=== PATIENT | male | born 1985 | race Caucasian/White ===

== ENCOUNTER 2023-03-01 12:53 | Outpatient (AMB) | payer OTHER, SELFPAY ==
--- NOTE | 2023-03-01 13:20 | HO.SPINEOV ---
Intake Intake Visit Reasons: Low back pain Intake Note: Mr. Chowdary is here today c/o low back pain. MRI done @ [facility]/brought disc. Head Machine Feeder Required: No Assessment & Plan Assessment & Plan (1) Lumbar radiculopathy: Code(s): M54.16 - Radiculopathy, lumbar region Plan Dear colleague, Thank you for referring Lico to our office today. He is a pleasant 38-year-old male who comes in with a chief complaint of right-sided leg weakness and pain. He reports burning and tingling originating in his right buttock and radiating down the posterio-lateral aspect of his right leg. He states that the inciting incident happened back in September when he was at the gym doing a lift. He states as he was pulling the weight off of the ground he felt a pop in his lower back. He does report that he was able to resume normal activities with minimal pain for the next couple of months, until he began feeling radicular symptoms on his right side in late December. He states he tried utilizing Tylenol and ibuprofen with minimal benefit, and was most recently (3 weeks ago) started on prednisone 40 mg daily, and oxycodone 15 mg QID for his persistent radicular pain and weakness. He reports that sitting aggravates his pain, and that standing and lying flat alleviate his pain. PMH: Gout. Appendectomy (1996), R hand ORIF (2009). Social hx: Patient does not smoke. Reports no recreational substance use. Medications: Prednisone 50mg daily. Oxycodone 15mg daily. Allergies: NKDA Physical exam: The patient is able to elicit 5/5 strength in his lower extremities, despite pain. He walks with an antalgic gait. Sensation is grossly intact. Lower extremity reflexes 2+ intact. (+) Straight leg raise on R side. (-) Babinski. Imaging review: At L5-S1 there is a large right-sided disc protrusion severely compressing the right S1 nerve root. Imaging reviewed with Dr. Gregg. Impression: The patient is a 38-year-old male coming in with a chief complaint of right-sided leg weakness and pain ongoing for the last 6-8 weeks post an initial inciting injury back in September. He has tried utilizing hoqa-xpl-uecbkbz pain medications, stretching, exercise, and resting without much benefit. He now finds himself on narcotic pain medications and steroids to help tolerate the pain. After reviewing his imaging and history with Dr. Gregg, we were able to offer him a L5-S1 microdiscectomy. He is agreeable to this plan, and was scheduled for March 17. Will need to call his prescriber and taper down off Prednisone dose over next 1-2 weeks. He was also advised to taper down off his pain medication regimen. Thank you for allowing us to care for your patient. The total time spent with this visit with this patient was 45 minutes reviewing history, physical exam, MRI imaging review, and implementation of treatment plan or further diagnostic testing. Aneesh Gregg MD,PhD [facility] Coding Level of Care Code New Pt Level 4 (94768) Diagnoses Lumbar radiculopathy M54.16 Time Spent (min) 45
== END 2023-03-01 13:51 | disposition home or self-care (01) ==
PROVIDERS: PCP Internal Medicine; Referring Provider Internal Medicine; Visit Provider Physician Assistant
DX: M54.16 Radiculopathy, lumbar region (principal)
CPT/HCPCS: 99204

== ENCOUNTER → 2023-03-01 12:53 | Outpatient (BNVA) | payer OTHER, SELFPAY | PROVIDERS: PCP Internal Medicine; Referring Provider Internal Medicine; Visit Provider Physician Assistant ==

== ENCOUNTER 2023-03-17 11:58 | Day surgery (SDC) | payer OTHER, SELFPAY ==
[2023-03-09 15:02] VITALS: BMI 28.1
--- NOTE | 2023-03-16 09:26 | HO.ANESPROP2 ---
Documented by User: Linda Mock NP 03/16/23 09:27 HPI - Anesthesia Eval Consult details Narrative: 38yo M for Right L5-S1 MLDMicrolumbar discectomy PMFSH Active Problems Active Problems: All Active Problems (Updated 03/09/23 @ 15:01 by Cat Cruz RN) Lumbar radiculopathy (Acute) Past Medical History Medical History (Updated 03/09/23 @ 15:01 by Cat Cruz RN) Gout Hx of concussion Low back pain Right hip pain Tingling Surgical History Surgical History (Updated 03/09/23 @ 14:59 by Cat Cruz RN) Hx of appendectomy Hx of hand surgery Social History Social History (Updated 03/09/23 @ 15:05 by Cat Cruz RN) Household Members: Family Housing: House Are you a primary pet care attendant to a significant other at home: Yes (lives with and children) Do you presently have visiting nurse or other home services: No Patient Tobacco Use Status: Never used Tobacco Use of substances other than those prescribed or required for medical reasons: No Have you been hit, kicked, punched, or otherwise hurt by someone within the past year? If so, by whom?: No Are you DNR?: No Advance Directives: No Advance Directives Information Provided: Yes Advance Directives on File: No Recently lost weight without trying: No Nutrition Risks: No Nutritional Risk Meds Allergies Allergy/AdvReac Type Severity Reaction Status Date / Time No Known Allergies Allergy Verified 03/07/23 15:58 Home Medications Medication Instructions Recorded Confirmed Last Taken Type oxycodone 10 mg tablet 10 mg PO QID PRN Pain 03/09/23 03/09/23 Unknown History Exam Exam Date and Time: March 16, 2023 0926 Height,Weight and Vital Signs: Height 5 ft 9 in Weight 86.183 kg Assessment and Plan Assessment Anesthesia Assessment: Chart Reviewed Documented by User: Yash Chase MD 03/17/23 11:26 [facility] Past Medical History Medical History (Updated 03/09/23 @ 15:01 by Cat Cruz, RN) Gout Hx of concussion Low back pain Right hip pain Tingling Family History Family history of problems with anesthesia: No Surgical History Surgical History (Updated 03/09/23 @ 14:59 by Cat Cruz, RN) Hx of appendectomy Hx of hand surgery History of Problems with Anesthesia: No Social History Social History (Updated 03/09/23 @ 15:05 by Cat Cruz, RN) Household Members: Family Housing: House Are you a primary pet care attendant to a significant other at home: Yes (lives with and children) Do you presently have visiting nurse or other home services: No Patient Tobacco Use Status: Never used Tobacco Use of substances other than those prescribed or required for medical reasons: No Have you been hit, kicked, punched, or otherwise hurt by someone within the past year? If so, by whom?: No Are you DNR?: No Advance Directives: No Advance Directives Information Provided: Yes Advance Directives on File: No Recently lost weight without trying: No Nutrition Risks: No Nutritional Risk Meds Allergies Allergy/AdvReac Type Severity Reaction Status Date / Time No Known Allergies Allergy Verified 03/07/23 15:58 Home Medications Medication Instructions Recorded Confirmed Last Taken Type oxycodone 10 mg tablet 10 mg PO QID PRN Pain 03/09/23 03/09/23 Unknown History Exam Airway Mallampati Class: II TM Dist: >3cm Neck ROM: Full Heart: rrr Lungs: cta Assessment and Plan Assessment Anesthesia Assessment: Anesthesia Plan Discussed Final Anesthetic Review Family History of Problems with Anesthesia: No History of Problems with Anesthesia: No NPO: Yes ASA Class: II Final Preanesthetic Review: No Changes in Pt Med Stat, Meds/Allgs Chart Reviewed, Consent Obtained/Reviewed and Anes Risks/Benef Reviewed Patient Risk: Intermediate Procedure Risk: Intermediate Anesthetic Plan Anesthetic Plan: GA and Agree w/ Assess. and Plan Disposition: Standard PACU
[2023-03-17] VITALS (7 sets, daily range): BP systolic 106–134; BP diastolic 68–90; PULSE 64–76; RESP 16–18; TEMP 36.1–36.6; O2SAT 97–100
--- NOTE | ~2023-03-17 | FL_ITS ---
CLINICAL INDICATION: Back pain. FINDINGS: Technical assistance and equipment were provided by the Department of Radiology during intraoperative fluoroscopy for lumbar discectomy. 1, limited fluoroscopic spot image is submitted. A radiologist was not present during the procedure. The image demonstrates the tip of surgical hardware to project posterior to L5-S1. The image is available for review on PACS. TOTAL FLUOROSCOPY TIME: 0.0 minutes. DOSE AREA PRODUCT: 0.45 Gy-cm2 (pringle-centimeter squared) FL/FL guidance in OR IMPRESSION: Technical assistance and equipment provided by the Department of Radiology during intraoperative fluoroscopy, as above. Please see operative report for further details.
--- NOTE | 2023-03-17 07:09 | MHC.SHP ---
Pre-Procedural Eval Section A Date of Service: 03/17/23 The patient is an INPATIENT: No Changes since office visit: No Cold of Flu in the past 2 weeks, No New Medical Problems, No Changes in Medication and No Patient answered all questions The History & Physical has been completed within 30 days and I have reviewed it.: Yes Section B Chief Complaint: Radiculopathy, lumbar region Allergies: Allergies Allergy/AdvReac Type Severity Reaction Status Date / Time No Known Allergies Allergy Verified 03/07/23 15:58 Review of Systems Sugical H&P ROS: Negative: Constitution, Cardiovascular, Respiratory, Neurological, Psychiatric, Hem-Onc, Allergic/Immunologic, Gastrointestinal, Genitourinary, Musculoskeletal, Integumentary, Endocrine and Eyes/Ears/Nose/Throat Exam Surgical H&P Exam: Not Evaluated: HEENT, Not Evaluated: Heart, Not Evaluated: Lungs, Not Evaluated: Extremities, Not Evaluated: Abdomen, Not Evaluated: Skin and Not Evaluated: Neurological Plan Diagnosis/Plan: Unchanged I have reviewed the history and physical and performed a pertinent physical examination on my patient. No changes have occurred unless specified. right L5-s1 microdiskectomy Time Spent With Patient Time: Total time managing care of this patient today _10___ minutes.
[2023-03-17] MEDS: Lactated Ringers 1,000 ML 100 ML IVCONT (12:20)
[2023-03-17] MEDS: Gabapentin 300 MG CAPSULE PO (12:29)
[2023-03-17] MEDS: methocarbamoL 750 MG TABLET PO (12:29)
--- NOTE | 2023-03-17 12:37 | PC.NURSE ---
dr. gray aware that patient took Tylenol 1000 mg po at 1000. Okay to pull Tylenol 1000 mg IV as ordered. will be given at end of case per dr. gray.
--- NOTE | 2023-03-17 14:18 | P.OP_ITS ---
Operative Note Operative Note Date of Service: 03/17/23 Narrative: Preoperative diagnosis: Left lumbar radiculopathy due to disc herniation Postoperative diagnosis: Same Procedure: L5-S1 lumbar microdiskectomy with microscope Surgeon: Eric Gregg MD, PhD Printing Sign Machine Operator: NEEL Jacobs This patient is suffering from severe left leg pain due to a large L5-S1 disc herniation. The patient was offered a lumbar microdiskectomy to decompress the nerve root. The procedure complications were explained. The patient was consented. The patient was brought to the operating room and endotracheally intubated. The patient was turned in a prone position on the Marlon frame. Prepping and draping was done followed by time-out. A mid lumbar incision was made followed by release of the paravertebral muscles on the left side to expose the L5-S1 interspace. An intraoperative x-rays obtained to confirm the correct level. The microscope was brought in. A L5 laminotomy was done followed by opening of the flavum ligament. The S1 nerve root was identified and retracted medially to expose the L5-S1 disc space. I could palpate a disc herniation medial from the S1 nerve root, which I carefully removed with a pituitary in several pieces. The disc space was inspected and any residual disc fragments were removed. This resulted in an excellent decompression of the S0kwirj root. Hemostasis was done. The microscope was removed. Marcaine was injected intramuscularly.The incision was closed in two layers. Steri-Strips used to approximate seizure. An op-site were taken there was used to cover the incision. All sponge and needle counts were correct. Patient was extubated and transported in stable condition to recovery room. this procedure was done with the aid of a physician assistant food service director who performed the initial exposure until the microscope was brought in and performed the closure of the incision. Anesthesia: General Blood loss: 10 mL Complications: None Specimen: None Disposition: Discharge home
--- NOTE | 2023-03-17 14:19 | PM.DS ---
DS: Providers Provider Date of Service: 03/17/23 Primary care physician: Curt Barney MD DS: Diagnosis Discharge Diagnosis (1) S/P lumbar microdiscectomy: Status: Acute DS: Summary Time Spent with Patient Time attestation: Total time managing care of this patient today ____ minutes. Discharge coordination time: Less than 30 minutes Quality: Safe Use of Opioids Does Pt have an Active Cancer Diagnosis on the Problem List?: No Quality: Stroke Does the patient have a stroke diagnosis?: No Physical Exam Vital Signs: Vital Signs: Last Vital Signs Temp 97.9 F 03/17/23 12:32 Pulse 76 03/17/23 12:32 Resp 18 03/17/23 12:32 BP 134/90 H 03/17/23 12:32 Pulse Ox 99 03/17/23 12:32 O2 Del Method Room Air 03/17/23 12:32 BMI result Body Mass Index 28.1 Discharge Plan Discharge Patient Disposition: Home, Self-Care Referrals: Curt Barney MD [Primary Care Provider] - 1 Week Discharge Medications: New oxycodone 5 mg tablet 5 mg PO Q6H PRN (Reason: SEVERE PAIN) Qty: 20 0RF Rx Instructions: Partial Fill upon patient request. Discharge Orders: Discharge Order (Routine); Ordered 03/17/23 Ordered By: Aneesh Ruiz Diet: Advance to usual diet Activity on Discharge: As tolerated Activity Restrictions/Additional Instructions: After your spinal surgery we ask you to observe the following restrictions/guidelines: Activity: It is normal to feel some discomfort as you increase your activity, but that will improve with time. We ask you avoid heavy lifting or acitivities that cause pain. As a general rule, 8lbs is a safe limit for lifting right after surgery. Walk as much as you feel comfortable but not to exhaustion. You will feel extra tired the first few days after surgery. Stay well hydrated. It is OK to walk up and down stairs You may return to driving when you are off narcotics (such as vicodin, oxycodone, dilaudid, etc), and you are back to normal functional capacity. If you have any concerns please check with office before driving. Return to work is specific to each patient and each surgery, so please speak with your doctor/PA at first follow up. Please bring paperwork such as FMLA at that time if you need it filled out. Medications: We will give you a short supply of narcotics after surgery (usually one weeks worth). If you need more please call the office but do not use more than prescribed. You will need to give our office 48 hours notice if you need narcotics refilled and we do not fill narcotics on weekends or evenings. If you are on a narcotic, it is a good idea to take a stool softener such as colace or senna to avoid constipation If you take blood thinner such as aspirin, Plavix, Coumadin, Effient, Eliquis etc for conditions such as Afib, DVT, Pulmonary embolus, coronary disease, stents etc please speak with your surgeon about specific details as to when you can resume these medications. You can resume NSAIDs on post op day 1 (eg: Motrin, Naproxen, etc). Follow up: Please call the office, , after surgery to arrange a 3 week follow up for wound check. Wound Care: You may remove your dressing on the first day after surgery. You may leave open to air. Please do not remove the steri strips underneath. they will fall off on their own in one week. IT IS NORMAL FOR THE WOUND TO OOZE OR BE BLOODY FOR A FEW DAYS AFTER SURGERY. IF THIS HAPPENS JUST PLACE NEW DRESSING OVER IT TO AVOID STAINING CLOTHES. You may shower on post op day # 1 We ask that you do not let the water soak the wound. If it does get wet, just towel dry lightly. Please do not scrub your incision or place any type of chemical/ointment on the wound. No tub baths, pools or jacuzzis for one month. If you have any leaking or redness from your wound, or fevers, please call office
== END 2023-03-17 15:22 | disposition home or self-care (01) ==
PROVIDERS: PCP Internal Medicine; Visit Provider Neurological Surgery
PROC: (CPT 63030; principal; 2023-03-17 14:20)
DX: M51.16 Intervertebral disc disorders with radiculopathy, lumbar region (principal); M79.604 Pain in right leg; R20.2 Paresthesia of skin; M54.50 Low back pain, unspecified; R26.89 Other abnormalities of gait and mobility; M10.9 Gout, unspecified; Z98.890 Other specified postprocedural states; Z79.52 Long term (current) use of systemic steroids; Z79.899 Other long term (current) drug therapy
CPT/HCPCS: 63030; J0131; J0690; J1100; J1170; J1885; J2405

== ENCOUNTER → 2023-03-17 11:58 | Outpatient (BNV) | payer OTHER, SELFPAY | PROVIDERS: PCP Internal Medicine; Visit Provider Physician Assistant | DX: M51.16 Intervertebral disc disorders with radiculopathy, lumbar region (principal); M51.26 Other intervertebral disc displacement, lumbar region | CPT/HCPCS: 63030 ==

== ENCOUNTER 2023-05-03 15:03 | Outpatient (AMB) | payer OTHER, SELFPAY ==
--- NOTE | 2023-05-03 14:58 | HO.SPINEOV ---
Intake Intake Visit Reasons: 1st post op Intake Note: Mr. Lam is here today for his 1st post-op visit. Manufacturing Test Technician Required: No Allergies No Known Allergies Allergy (Verified 03/17/23 12:03) Assessment & Plan Assessment & Plan (1) S/P lumbar discectomy: Code(s): Z98.890 - Other specified postprocedural states Plan Procedure: L5-S1 lumbar microdiskectomy Lico comes in today for his 1st postoperative visit. He reports he is very satisfied with the surgery and feels much better than he did pre-operatively. He is able to sit down for extended period of time without feeling pain. He also reports that he is going to the gym (no weight bearing), going for walks, and completing the majority of his ADLs. He did express some concerns about random twinges and pains in his back, which he loosely associates with right and left-sided leg pain. However, he reports that he no longer suffers from his right-sided shooting radiculopathy. He still reports mild discomfort with good relief with OTC pain medication. Full strength 5/5 UE / LE. Mobility is intact. Sensation grossly intact. Patient is able to ambulate well, rises from a seated position without difficulty. Incision site is closed, well healing, with no signs of drainage. We will follow-up with the patient in 6 weeks for his 2nd postoperative visit. If he continues to do well he may be discharged as a patient at this time. Aneesh Gregg MD,PhD [facility] Coding Level of Care Code Global (98126) Diagnoses S/P lumbar discectomy Z98.890
== END 2023-05-03 15:49 | disposition home or self-care (01) ==
PROVIDERS: PCP Internal Medicine; Visit Provider Physician Assistant
DX: Z98.890 Other specified postprocedural states (principal)
CPT/HCPCS: 99024

== ENCOUNTER → 2023-05-03 15:03 | Outpatient (BNVA) | payer OTHER, SELFPAY | PROVIDERS: PCP Internal Medicine; Visit Provider Physician Assistant ==

== ENCOUNTER 2024-10-12 15:10 | Outpatient (AMB) | payer OTHER, SELFPAY ==
--- NOTE | 2024-10-12 15:23 | HO.SPINEOV ---
Intake Visit Reasons: LBP Intake Note: Mr. Lam is here today c/o Low back pain. Asphalt Paving Superintendent Required: No Allergies No Known Allergies Allergy (Verified 03/17/23 12:03) Assessment & Plan Assessment & Plan (1) S/P lumbar discectomy: Code(s): Z98.890 - Other specified postprocedural states Category: Medical Plan Mr Lam came back to see us today. He had an L5-S1 right-sided microdiskectomy done in 2022. He did excellent up until about maybe February or March of last year when he started to notice a recurrence of the right leg pain. It was not as intense as the original large disc herniation but it was persistently aggravating to him. It would shoot down his leg into his posterior thigh and posterior distal lower extremity. He would be able to do most activities but often times be very uncomfortable while he is doing it or have pain the next day. He would try jqxt-gmm-mdxfhmh medications etc. to deal with it. At times it could be quite intense and other days it might be more manageable. No strength loss. In general he was able to complete most activities but just with a persistent nagging right leg pain. He underwent an MRI at [facility] (we were unable to get the images on the computer but he brought a disc with him), and this showed small recurrent herniated disc on the right at L5-S1. Dr. Gregg I reviewed the film, we talked with him about the natural history of disc herniations and in general they can go away on their own if given enough time. Oddly enough, he reports that this week he has had 1 of the best weeks he has had in quite some time. I told him we can go any number of ways with this. However, if the pain is manageable and it is not disabling that it would be best to avoid surgery if at all possible. I do not think a cortisone injections going to have any lasting benefit for him. I did give him a referral to physical therapy because most of the insurance companies will require at least a 6 week physical therapy conservative management trial before allowing us to do surgery. Therefore, if the pain does return this will at least be out of the way. He will call us down the road and let us know if he wants to go ahead with surgery or just continue waiting it out. Total amount of time spent in this visit was 20 minutes in discussion of symptoms, lumbar imaging results and subsequent plan of care Lico Gregg MD,PhD [facility] Orders: Orders PT Evaluation and Treatment Today Z98.890 - Other specified postprocedural states Coding Level of Care Code Est Pt Level 3 (31609) Diagnoses S/P lumbar discectomy Z98.890
--- OUTSIDE RECORDS SUMMARY | 2024-10-12 17:16 | XMS_ITS | Encounter Summary ---
Author Organization [facility] Address [address] [place] [address] Phone Care Team Providers Care Mid Teacher Name Role Phone Curt Barney DO Primary Care Provider [phone] Encounter Details Date Type Department Care Team (Late st Contact Info) Description 02/05/2022 Transcribe Orders Virtual Department [address] [place] [address] Curt Barney DO [address] [place] [address] [place] [address] Social History Tobacco Use Types Packs/Day Years Used Date Smoking Tobacco: Never Assessed Sex and Gender Information Value Date Recorded Sex Assigned at Not on file Gender Identity Not on file Sexual Orientation Not on file documented as of this encounter Plan of Treatment Not on file documented as of this encounter Visit Diagnoses Not on filedocumented in this encounter Care Teams Mid Teacher Relationship Specialty Start Date End Date Curt Barney DO PCP - General Internal Medicine 01/27/23 documented as of this encounter Additional Source Comments The information contained in this document represents components of the legal health record. It is not the complete legal health record.[facility]
--- OUTSIDE RECORDS SUMMARY | 2024-10-12 17:16 | XMS_ITS | Clinical Summary ---
Author Organization [facility] Address [address] [id number] Care Team Providers Care Dairy Machine Operator Farmworker Name Role Phone DarielaChristian cardenas Meka BARRIENTOS Primary Care Provider [phone] Allergies No known active allergies Medications * This document contains information received from the source organization and may not represent a complete record from that organization. No known medications Active Problems No known active problems Immunizations Name Administration Dates Next Due DTP 06/08/1989, 7,1985,1985,0 1985 Hep B (pedi) 11/26/2002 MMR 08/01/1986 OPV 06/08/1989,08/01/1986,1985 ,1985 PPD/TST (Tuberculin Skin Test) 03/28/2008,2002 Td (adult), adsorbed 10/08/1999 Family History Relation Name Status Comments Sister 1 Cristian Alive Sister 2 Loretta Alive Social History Tobacco Use Types Packs/Day Years Used Date Smoking Tobacco: Never Smokeless Tobacco: Never Alcohol Use Standard Drinks/Week Comments Yes 0 (1 standard drink = 0.6 oz pur e alcohol) COUPLE DRINKS PER MONTH Sex and Gender Information Value Date Recorded Sex Assigned at Not on file Legal Sex Male 9:50 PM EDT Gender Identity Not on file Sexual Orientation Not on file Last Filed Vital Signs Vital Sign Reading Time Taken Comments Blood Pressure 128/70 08/21/2009 2:54 PM EST Pulse 70 08/21/2009 2:54 PM EST Temperature 36.5 ??C (97.7 ??F) 08/21/2009 2:54 PM ES T Respiratory Rate 14 08/21/2009 2:54 PM EST Oxygen Saturation - - Inhaled Oxygen Concentration - - Weight 86.2 kg (190 lb) 12/22/2012 12:46 PM EDT Height 175.3 cm (5' 9 ) 12/22/2012 12:46 PM EDT Body Mass Index 28.06 12/22/2012 12:46 PM EDT Plan of Treatment Health Maintenance Due Date Last Done Comments Hepatitis C Screening 1985 DTaP/Tdap/Td (6 - Tdap) 10/09/1999 10/08/19 00, 06/08/1989, 08/01/1986, Additional history exists Hep B (2 of 3 - 3-dose series) 12/24/2002 11/26/2002 COVID-19 Vaccine ( season) 2024 Influenza (#1) 2024 Zoster (Shingrix) (1 of 2) 2035 HPV Vaccine Aged Out No longer eligi ble based on patient's age to complete this topic Hep A Aged Out No longer eligi ble based on patient's age to complete this topic Hib Aged Out No longer eligi ble based on patient's age to complete this topic Meningococcal ACWY Aged Out No longer eligible based on patient's age to complete this topic Pneumococcal Aged Out No longer eligi ble based on patient's age to complete this topic Insurance FEE FOR SERVICE HMO [facility]) - OUT OF NETWORK * Guarantor: [employer] Account Type Relation to Patient Date of Phone Billing Address [employer] [facility] [address] [place] [address] Care Teams Dairy Machine Operator Farmworker Relationship Specialty Start Date End Date Christian Tran DO [address] [address] PCP - General Family Medicine 11/22/12
--- OUTSIDE RECORDS SUMMARY | 2024-10-12 17:16 | XMS_ITS | Data Portability ---
Author Organization [facility] Service Address [address] [place] [address] Assessment Encounter Date Assessment Date Assessment LastModified by Organization Details LastModified Time 10/16/2021 10/16/2021 [id number] [place] [id number] (COMMERCIAL LINES ASSISTANT) : MDM LOW MUST MEET 2 OF 3 ELEMENTS: PROBLEMS, DATA OR RISK ELEMENT 1: PROBLEMS ADDRESSED (LOW): 2 OR MORE SELF-LIMITED OR MINOR PROBLEMS OR 1 STABLE CHRONIC ILLNESS OR 1 ACUTE UNCOMPLICATED ILLNESS OR INJURY ELEMENT 2: DATA TO BE REVISED AND ANALYZED (LOW) MUST MEET 1 OF 2 CATEGORIES: CATEGORY 1. REVIEW OF PRIOR EXTERNAL NOTES/RESULTS, ORDERING OF TEST(S) CATEGORY 2. ASSESSMENT REQUIRING INDEPENDENT HISTORIAN(S) INCLUDE WHO THE HISTORIAN IS AND RELATION TO PT AND WHY PT IS UNABLE TO GIVE COMPLETE HISTORY ELEMENT 3: RISK (LOW) RISK OF COMPLICATIONS AND/OR MORBIDITY OR MORTALITY OF PATIENT MANAGEMENT PROVIDER MUST THOROUGHLY DOCUMENT ALL OF THE ELEMENTS COVERED Not available 10/16/2021 15:26:07 02/02/2023 02/02/2023 [id number] [place] [id number] (COMMERCIAL LINES ASSISTANT) MDM MODERATE MUST MEET 2 OUT OF 3 ELEMENTS: PROBLEMS, DATA OR RISK ELEMENT 1: PROBLEMS ADDRESSED 1 OR MORE CHRONIC ILLNESS WITH EXACERBATION OR 2 OR MORE STABLE CHRONIC ILLNESSES OR 1 UNDIAGNOSED NEW PROBLEM OR 1 ACUTE ILLNESS W/SYMPTOMS OR 1 ACUTE COMPLICATED INJURY ELEMENT 2: DATA MUST MEET 1 OF 3 CATEGORIES CATEGORY 1: REVIEW OF PRIOR EXTERNAL NOTES, REVIEW OF RESULTS, ORDERING OF EACH TEST, ASSESSMENT REQUIRING INDEPENDENT HISTORIAN OR CATEGORY 2: INDEPENDENT INTERPRETATION OF TESTS BY ANOTHER PHYSICIAN OR SPECIALIST OR CATEGORY 3: DISCUSSION OF MGT OR TEST INTERPRETATION W/EXTERNAL PHYSICIAN OR SPECIALIST ELEMENT 3: RISK RISK OF COMPLICATIONS AND/OR MORBIDITY OR MORTALITY OF PATIENT MANAGEMENT PROVIDER MUST THOROUGHLY DOCUMENT EACH ELEMENT THAT IS COVERED Not available 02/02/2023 12:25:40 10/12/2023 10/12/2023 [id number] [place] [id number] (COMMERCIAL LINES ASSISTANT) MDM MODERATE MUST MEET 2 OUT OF 3 ELEMENTS: PROBLEMS, DATA OR RISK ELEMENT 1: PROBLEMS ADDRESSED 1 OR MORE CHRONIC ILLNESS WITH EXACERBATION OR 2 OR MORE STABLE CHRONIC ILLNESSES OR 1 UNDIAGNOSED NEW PROBLEM OR 1 ACUTE ILLNESS W/SYMPTOMS OR 1 ACUTE COMPLICATED INJURY ELEMENT 2: DATA MUST MEET 1 OF 3 CATEGORIES CATEGORY 1: REVIEW OF PRIOR EXTERNAL NOTES, REVIEW OF RESULTS, ORDERING OF EACH TEST, ASSESSMENT REQUIRING INDEPENDENT HISTORIAN OR CATEGORY 2: INDEPENDENT INTERPRETATION OF TESTS BY ANOTHER PHYSICIAN OR SPECIALIST OR CATEGORY 3: DISCUSSION OF MGT OR TEST INTERPRETATION W/EXTERNAL PHYSICIAN OR SPECIALIST ELEMENT 3: RISK RISK OF COMPLICATIONS AND/OR MORBIDITY OR MORTALITY OF PATIENT MANAGEMENT PROVIDER MUST THOROUGHLY DOCUMENT EACH ELEMENT THAT IS COVERED [email or web address] Not available 10/12/2023 17:08:02 Plan of Treatment Reminders Order Date Submit Date Provider Last Modified By Organization Details Last Modified Time Details Appointments ANNUAL EXAM 2024 09:30A M DR FRITZ Not available Not available Not available Lab None recorded. Referral physical therapist referral 2022 023 [facility] [place], [address] [place] [address] Rd, [address], [place], [address], 04/12/2023 08:18:57 Procedures None recorded. Surgeries None recorded. Imaging MRI, lumbar spine, w/o contrast 2022 023 [facility] (Diagnostic Imaging), [address] [place], [address], 02/15/2023 11:29:21 XR, knee, 3 view 2021 022 [facility] (Radiology), [address] [place], [address], 10/30/2021 08:42:47 XR, knee, 3 view 2021 022 [facility] (Radiology), [address] [place], [address], 10/30/2021 08:42:46 Medication Orders prednison e 10 mg tablet 2023 024 [facility], [address] [place], [address], 07/27/2024 16:45:02 baclofen 20 mg tablet 2023 024 [facility] [address] [place], [address], 06/08/2024 14:39:27 oxycodone 5 mg tablet 2023 025 [facility], [address] [place], [address], 07/27/2024 16:44:58 valacyclo vir 1 gram tablet 2023 024 [facility], [address] [place], [address], 10/12/2023 17:09:14 prednison e 10 mg tablet 2023 024 [facility], [address] [place], [address], 07/27/2024 16:45:02 gabapenti n 300 mg capsule 2022 023 [facility], [address] [place], [address], 10/12/2023 16:20:57 prednison e 10 mg tablets in a dose pack 2022 023 [facility], [address], [place], [phone], 04/06/2023 15:33:38 oxycodone 10 mg tablet 2022 023 [facility] #09097, [address], [place], [place], [id number], 04/06/2023 15:33:17 diclofena c sodium 75 mg tablet,de layed release 2021 022 [facility], [address], [place], [place], [phone], 04/06/2023 15:31:34 Patient TargetsNo targets recorded. Patient Instructions Encounter Date Encounter Id Patient Instructions Last Modified By Organization Details Last Modified Time 10/12/2023 [id number] canker sore: car e instructions Not available 10/12/2023 17:09:12 Reason for Referral Physical Therapist Referral for Low back pain post op microdiscetomy L5 to S1, need PT for back pain post op Referring Physician: Florencia Jones, Internal Medicine, Encounter Date: 04/06/2023 Results Created Date Observation Date Name Description Value Unit Range Abnormal Flag Note LastModifiedBy Organization Detail LastModifiedTime 10/20/19 22 10/19/2021 XR, knee, 1 or 2 view No observ ation record ed. [facility] (Radiology) [address] [place], [address], 11/04/2021 15:28:58 02/04/20 22 02/03/2022 MRI, knee, w/o contr ast No observ ation [facility]. [facility] [address] [place], [address], 02/08/2022 10:05:39 02/16/20 23 02/09/2023 MRI, lumba r spine , w/o contr ast No observ ation record ed. [address], [address], 02/21/2023 23:25:16 07/12/20 24 06/14/2024 XR, lumba r spine No observ ation record ed. [address], [address], 07/30/2024 10:00:13 09/01/19 25 08/31/2024 MRI, lumba r spine , w/wo contr ast No observ ation record ed. [email or web address] [address] [address], [place], [address], 09/05/2024 13:29:17 Result Notes None recorded. Problems Name Problem SNOMED Code Status Onset Date Resolution Date Notes Provider Name and Address Organization Details Recorded Time Pain of left knee joint 388822921251 107 Active 2021 NEEL ALLISON [address] [place] [address], [address], [facility] 2 15:29:29 Derangeme nt of medial meniscus 548838421 Active 2021 Not Available [facility] 3 15:29:07 Acute tear of medial meniscus of right knee 933279935017 00742 Active 2021 Curt Fritz DO [address] [place] [address], [address], [facility] 2 22:19:39 Pain of right knee joint 341667982885 100 Active 2021 Not Available [facility] 3 15:29:08 Gout 87278759 Active 2022 Curt Fritz DO [address] [place] [address], [address], [facility] 3 15:54:34 Lumbago-s ciatica due to displacem ent of lumbar intervert ebral disc 47388904 Active 2022 Curt Fritz DO [address] [place] [address], [address], [facility] 3 12:22:09 Onychomyc osis 294939052 Active 2022 Curt Fritz DO [address] [place] [address], [address], [facility] 3 17:15:37 Atopic dermatiti s 33433538 Active 2022 Curt Fritz, DO [address] [place] [address], [address], [facility] 3 17:18:29 Neuropath y 517555735 Active 2022 NEEL ALLISON [address] [place] [address], [address], [facility] 3 15:43:36 Low back pain 987741838 Active 2022 NEEL ALLISON [address] [place] [address], [address], [facility] 3 15:53:21 Aphthous ulcer of mouth 203228965 Active 2023 Curt Fritz, DO [address] [place] [address], [address], [facility] 4 17:08:16 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 2023 Curt Fritz, DO [address] [place] [address], [address], [facility] 4 17:08:44 Lumbago with sciatica 724030938 Active 2023 NEEL ALLISON [address] [place] [address], [address], [facility] 4 14:36:56 Lumbago with sciatica 782709314 Active 2023 NEEL ALLISON [address] [place] [address], [address], [facility] 4 14:37:02 Inflammat ion of sacroilia c joint 16568938 Active 2024 NEEL ALLISON [address] [place] [address], [address], [facility] 5 16:44:32 Degenerat ion of lumbar intervert ebral disc 55337976 Active 2024 NEEL ALLISON [address] [place], [address], [facility] 10:00:51 Problem Notes None recorded. Procedures Surgical History None recorded. Imaging Results Imaging Date Name Status LastModified by Organiz ation Details LastModified Time 10/19/2021 XR, knee, 1 or 2 [facility] [address], [place], [address], 11/04/2021 15:28:58 02/03/2022 MRI, knee, w/o contrast completed [facility] [address] [place], [address], 02/08/2022 10:05:39 02/09/2023 MRI, lumbar spine, w/o contrast [facility] [address], [address], 02/21/2023 23:25:16 06/14/2024 [facility] [address] [place], [address], 07/30/2024 10:00:13 08/31/2024 MRI, lumbar spine, w/wo contrast completed [facility] [address] [facility] [address], [place], [address], 09/05/2024 13:29:17 Procedure Notes None recorded. Medical Equipment None Reported. Allergies No known drug allergies Medications Name Sig Start Date Stop Date Status Note LastModified by Organization Details LastModified Time cyclobenzap rine 10 mg tablet 03/01 completed Not Available Not Available Not Available prednisone 10 mg tablet PLEASE SEE ATTACHED FOR DETAILED DIRECTION S 07/27 completed Not Available Not Available Not Available doxycycline hyclate 100 mg capsule TAKE 1 CAPSULE BY MOUTH TWICE DAILY FOR 7 DAYS 10/11 completed Not Available Not Available Not Available tizanidine 4 mg tablet TAKE 1 TABLET BY MOUTH EVERY 6 HOURS NEEDED FOR 14 DAYS 07/27 completed Not Available Not Available Not Available valacyclovi r 1 gram tablet TAKE 1 TABLET BY MOUTH EVERY 12 HOURS FOR 7 DAYS active Not Available Not Available No t Available fluconazole 200 mg tablet TAKE 1 TABLET BY MOUTH EVERY DAY FOR 10 DAYS 10/11 completed Not Available Not Available Not Available meloxicam 15 mg tablet TAKE 1 TABLET EVERY DAY BY ORAL ROUTE WITH MEAL(S) FOR 30 DAYS. 2024 active Not Available Not Available Not Avai lable prednisone 20 mg tablet TAKE 2 TABLETS BY MOUTH EVERY DAY FOR 10 DAYS DIRECTED 04/06 completed Not Available Not Available Not Available triamcinolo ne acetonide 0.1 % topical cream active Not Available Not Available Not Available baclofen 20 mg tablet TAKE 1 TABLET BY MOUTH THREE TIMES A DAY NEEDED FOR 14 DAYS active Not Available Not Available No t Available prednisone 10 mg tablets in a dose pack Take 4 tablets every day by oral route for 7 days. 04/06 completed Not Available Not Available Not Available lorazepam 2 mg tablet TAKE 2 TABLETS BY MOUTH EVERY NIGHT AT BEDTIME 04/06 completed Not Available Not Available Not Available clotrimazol e-betametha sone 1 %-0.05 % topical cream APPLY TOPICALLY TO GROIN TWICE DAILY FOR 10 DAYS active Not Available Not Available No t Available lidocaine 5 % topical patch APPLY 1 PATCH TO AFFECTED AREA WEAR UP TO 12 HOURS THEN OFF FOR 12 HOURS BEFORE APPLYING ANOTHER 04/06 completed Not Available Not Available Not Available gabapentin 300 mg capsule TAKE ONE CAPSULE BID FOR ONE WEEK, THEN TAKE ONE CAPSULE ONCE PER DAY PO QD FOR ONE WEEK 10/11 completed Not Available Not Available Not Available diclofenac sodium 75 mg tablet,july yed release TAKE 1 TABLET BY MOUTH TWICE DAILY FOR 10 DAYS 04/06 completed Not Available Not Available Not Available naproxen 500 mg tablet 04/06 completed Not Available Not Available Not Available diazepam 5 mg tablet TAKE 1 TABLET BY MOUTH THREE TIMES DAILY NEEDED FOR LOWER BACK PAIN 04/06 completed Not Available Not Available Not Available amoxicillin 875 mg-potassiu m clavulanate 125 mg tablet TAKE 1T BY MOUTH EVERY 24 HOURS 02/02 completed Not Available Not Available Not Available oxycodone 5 mg tablet TAKE 1 TABLET BY MOUTH EVERY 6 TO 8 HOURS NEEDED FOR 7 DAYS 07/27 completed Not Available Not Available Not Available oxycodone 10 mg tablet Take 1 tablet 4 times a day by oral route as needed for 7 days. active Not Available Not Available No t Available Vitals Date Recorded Body weight Heart rate Oxygen saturation Oxygen saturation in Arterial blood by Pulse oximetry Systolic blood pressure Diastolic blood pressure Provider Name and Address Organization Details Last Updated DateTime 2 04336.6 7 g 69 /min 98 % 98 % 138 mm[Hg] 90 mm[Hg] Curt Fritz, DO [address] [place], [address] 2 14:52:26 Date Recorded Heart rate Oxygen saturation Oxygen saturation in Arterial blood by Pulse oximetry Systolic blood pressure Diastolic blood pressure Provider Name and Address Organization Details Last Updated DateTime 3 87 /min 98 % 98 % 124 mm[Hg] 78 mm[Hg] Curt Fritz DO [address] [place], [address], [facility] 3 11:50:35 Date Recorded Body weight Heart rate Oxygen saturation Oxygen saturation in Arterial blood by Pulse oximetry Systolic blood pressure Diastolic blood pressure Provider Name and Address Organization Details Last Updated DateTime 3 42908.4 6 g 76 /min 99 % 99 % 120 mm[Hg] 80 mm[Hg] NEEL ALLISON [address] [place], [address], [facility] 3 15:30:54 Date Recorded Body height Body mass index (BMI) Body weight Heart rate Oxygen saturation Oxygen saturation in Arterial blood by Pulse oximetry Systolic blood pressure Diastolic blood pressure Provider Name and Address Organization Details Last Updated DateTime 4 175.26 cm 27.9 kg/m2 73721.9 6 g 74 /min 97 % 97 % 120 mm[Hg] 78 mm[Hg] Nga Orozco [facility] 4 16:23:08 Date Recorded Body height Body mass index (BMI) Body weight Heart rate Oxygen saturation Oxygen saturation in Arterial blood by Pulse oximetry Systolic blood pressure Diastolic blood pressure Provider Name and Address Organization Details Last Updated DateTime 4 175.26 cm 27.9 kg/m2 33026.5 2 g 85 /min 96 % 96 % 120 mm[Hg] 72 mm[Hg] Corazon Cosme [facility] 14:25:45 Social History Question Answer Notes LastModified by Organizat ion Details LastModified Time Tobacco Smoking Status Never Smoker Curt Temi Fritz DO [address] [place] [address], [address], [facility] 10/16/2021 14:48:52 What Was The Date Of Your Most Recent Tobacco Screening? 06/08/2024 [email or web address] Information not available 06/08/2024 Do You Use Any Illicit Or Recreational Drugs? No Information not available 10/16/2021 Do You Or Have You Ever Used Any Other Forms Of Tobacco Or Nicotine? No Information not available 10/16/2021 Sex: Male Functional Status None recorded. Mental Status None recorded. Family History Nothing Reported. Medical History No medical history recorded. Immunizations Vaccine Type Date Status Note Provider Nam e and Address Organization Details Recorded Time Influenza, [place] 06/08/2024 completed Cristina jeong [facility] 06/11/2024 08:09:34 Past Encounters Encounter ID Performer Location Encounter Start Date Encounter Closed Date Diagnosis/Indication Diagnosis SNOMED-CT Code Diagnosis ICD10 Code Diagnosis Note [id number] Curt Fritz [facility] [address] [place] [address],[place] [address] 10/16/2021 14:32:26 10/16/2021 15:30:26 Contusion of right knee 7737546017 9840859 S80.01XA Contusion of left knee 9021944206 6348336 S80.02XA [id number] Curt Fritz DO [facility] [address] [place] [address],[place] [address] 02/02/2023 11:38:50 02/02/2023 13:42:03 Lumbago-sciatica due to displacement of lumbar intervertebral disc 28762088 M51.17 loss of leg strength., loss of right achilles reflex decreased sensation to skin right leg severe back pain [id number] NEEL ALLISON [facility] [address] [facility] [address],[place] [address] 04/06/2023 15:23:28 04/06/2023 16:22:12 Neuropathy 891142677 G63 set up with taper for the gabapentin Low back pain 275562752 M54.59 will set up with taper and PT [id number] Curt Fritz DO [facility] [address] [facility],[place] [place] [address] 10/12/2023 16:08:13 10/14/2023 10:50:17 Aphthous ulcer of mouth 351320152 K12.0 Allergic urticaria 93095 009 L50.0 [id number] NEEL ALLISON [facility] [address] [facility],[place] [address] 06/08/2024 14:19:39 06/08/2024 14:48:24 Lumbago with sciatica 982775113 M54.41 Health Concerns Section Related Observation LastModified by Organization Detai ls LastModified Time None Recorded Concern Status LastModified by Organization Details LastModified Time None Recorded Advance Directives Directive None Recorded Payers Encounter Date Sequence Insurance Name Policy Number Policy Roblero Covered Member ID Roblero Member ID Guarantor Name 10/16/2021 1 [place] - DOS PRIOR TO 2024 - [employer] () Lico Lam [id number] Lico Lam 02/02/2023 1 [employer] - DOS PRIOR TO 2024 - [employer] () Lico Lam [id number] Lico Lam 04/06/2023 1 [employer] - DOS PRIOR TO 2024 - [employer] () Lico Lam [id number] Lico Lam 10/12/2023 1 [place] - DOS PRIOR TO 2024 - [employer] () Lico Lam [id number] Lico Lam 06/08/2024 1 [place] - DOS PRIOR TO 2024 - [employer] () Lico Lam [id number] Lico Genaro Notes Date Note Type Note Provider Name a nd Address Organization Details Recorded Time 10/16/2021 text/html two weeks ago wa s working and was carrying a heavy rucksack and had to jusmp several feet and landed so hard he injured his kneesrelates he hit the feet first and then folded int hyper flexionstates he i s very sore hurts with any wgt bearingesp stairswakes him up from sleep Curt Fritz DO [address] [place], [address], [facility] 10/16/2021 15:28:14 02/02/2023 text/html sudden onset of recurrent back pain had been seen by UC last week and given ativan for muscle relax did not help no injuryseen i ER as treated with meds and tramadol and xray showed just deg changespain radiates down the right buttock and into the right leg and kneesis unable to bear wgt on this right leghe is in severe paina nd is unable to sit he is standing with all wgt on the left leg Curt Fritz DO [address] [place], [address], [facility] 02/02/2023 12:30:48 04/06/2023 text/html f/u the patient is still having nerve painthe patient reports that after the epidural microdiscectomy of L5 to S1 (post op, less than month) it will be a month post up 04/21/23 will set up with PT as well post op will fu with patient after taper finishes NEEL ALLISON [address] [place], [address], [facility] 04/06/2023 16:03:32 10/12/2023 text/html he is improving but slowly relates that he is still in a lot of discomfort and is stretching but is very stiff and sore in the am he is doing the PT exercises every day Curt Fritz DO [address] [place], [address], [facility] 10/12/2023 17:10:04 06/08/2024 text/html c.o low back robert n the patient reports that he is having sciatic pain down the right side and right legfeels sharp and shootingno specific injury or trauma to this h/x of low back surgery twice will treat the flare upif it gets worse will f/u with repeat imaging and ortho consult will update me on Tuesday NEEL ALLISON [address] [place] [address], [place], [address], [facility] 06/08/2024 14:45:04
--- OUTSIDE RECORDS SUMMARY | 2024-10-12 17:16 | XMS_ITS ---
Author Name [facility] Encounters Encounter Type Encounter Reason Primary Diagnosis Location Date Ambulatory Lumbago with sciatic a, right side Lumbago with sciatica, right side [facility] 06/14/2024 Ambulatory Intvrt disc disorder s w radiculopathy, lumbosacral region [facility] 02/09/2023 Emergency [facility] 01/29/2023 Care Team Organization Name Specialty Phone Email Start Date End Da te [facility] VAHID FRITZ Primary Care [facility] NON DKH PROVIDER NON DKH [facility] 02/10/2023 09/26/2024 [facility] NON DKH NON DKH PROVIDER Primary Care 02/09/2023 02/09/2023 [facility] 01/29/2023 01/29/2023 [facility] 01/29/2023 09/26/2024
--- OUTSIDE RECORDS SUMMARY | 2024-10-12 17:16 | XMS_ITS | Encounter Summary ---
Author Organization [facility] Address [address] [place] [address] Care Team Providers Care Ruby On Rails Engineer Name Role Phone Christian Tran DO Primary Care Provider [phone] Encounter Details Date Type Department Care Team ([facility] st Contact Info) Description 07/04/2013 Orders Only [facility] Orthopedic Surgery [address] [facility] [address] [place] [address] Epifanio Stewart MD [address] [facility] [address] [place] [address] Social History Tobacco Use Types Packs/Day Years [...] on file documented as of this encounter Results * Due to [place] state law, this organization might not be sharing negative HIV tests. * XRAY ELBOW COMPLETE MIN 3 VWS - LEFT FC (08/10/2013 11:46 AM EST) Anatomical Region Laterality Modality UPPER EXTREMITY Radiographic Lora ging 08/12/2013 11:5 9 AM EST Narrative 08/12/2013 11:59 AM EST EXAM: Left elbow CLINICAL HISTORY: Pain ? TECHNIQUE: 3 views of the elbow were performed. FINDINGS: ??There is no evidence of a joint effusion. ??No acute fracture or dislocation is seen. Minor spurring present posteriorly olecranon , possibly involving the articular surface. No other osseous or joint abnormality is noted. IMPRESSION: ??No fracture seen. Minor spurring proximal olecranon possibly involving the articular surface. Procedure Note Larissa Truong MD - 08/12/2013 EXAM: Left elbow CLINICAL HISTORY: Pain TECHNIQUE: 3 views of the elbow were performed. FINDINGS: There is no evidence of a joint effusion. No acute fracture or dislocation is seen. Minor spurring present posteriorly olecranon , possibly involving the articular surface. No other osseous or joint abnormality is noted. IMPRESSION: No fracture seen. Minor spurring proximal olecranon possibly involving the articular surface. us Epifanio Stewart MD IMG XRAY NO CONTRAST ORDERABLES Final Result documented in this encounter Visit Diagnoses Diagnosis Left elbow pain- Primary Pain in joint, upper arm Left elbow pain Pain in joint, upper arm documented in this encounter Care Teams Ruby On Rails Engineer Relationship Specialty Start Date End Date Christian Tran DO [address] [address] PCP - General Family Medicine 11/22/12 documented as of this encounter
--- OUTSIDE RECORDS SUMMARY | 2024-10-12 17:16 | XMS_ITS | Data Portability ---
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 Plan of Treatment Reminders Order Date Submit Date Provider Last Modified By Organization Details Last Modified Time Details Appointments None recorded. Lab ESR (erythrocy te sedimentat ion rate), blood 2019 [facility] ([facility]), [address] [place] [address], [address], 0 10:53:50 uric acid, serum or plasma 2019 [facility] ([facility]), [address] [place] [address], [address], 0 11:12:18 tick-borne disease panel 2019 [facility] ([facility]), [address] [place] [address], [address], 1 00:20:17 WILLARD (antinucle ar antibodies ) screen, serum 2019 [facility] ([facility]), [address] [place] [address], [address], 0 13:06:24 rf (rheumatoi d factor), serum - Arthritis Panel (ART) 2019 [facility] ([facility]), [address], [place], [address], 0 11:18:09 CBC w/ auto diff 2019 [facility] ([facility]), [address], [place], [address], 0 09:56:45 lipid panel, serum 2019 [facility] ([facility]), [address], [place], [address], 0 11:12:17 TSH, serum or plasma 2019 [facility] ([facility]), [address], [place], [address], 0 12:02:34 CMP, serum or plasma 2019 [facility] ([facility]), [address], [place], [address], 0 11:12:16 Referral ophthalmol ogist referral 2019 shelley Mejia MD ([facility]), [address], [place], [address], 0 13:15:45 Procedures None recorded. Surgeries None recorded. Imaging None recorded. Medication Orders cyclobenza valente 10 mg tablet 2019 [id number], [address], [place], [place], [id number], 0 11:04:34 Percocet 5 mg-325 mg tablet 2019 [id number], [address], [place], [id number], 0 11:04:35 neomycin 3.5 mg/g-polym yxin B 10,000 unit/g-dex ameth 0.1 % eye oint 2019 020 [email or web address] [facility] #[id number], [address], [place], [place], [id number], 0 13:48:59 erythromyc in 5 mg/gram (0.5 %) eye ointment 2019 020 skoles[facility]asonia [facility] #[id number], [address], [place], [place], [id number], 0 14:59:37 Patient TargetsNo targets recorded. Patient InstructionsNo instructions recorded. Reason for Referral Director It Referral for Chalazion of upper eyelid Chronic intermittent Chalazion (4 times over past year in R eye only) Referring Physician: Jayne Nash, Family Medicine, Encounter Date: 09/21/2019 Results Created Date Observation Date Name Description Value Unit Range Abnormal Flag Note LastModifiedBy Organization Detail LastModifiedTime 06/05/2006/05/2020 CBC w/ auto diff WBC count 4.8 K/uL 4.20-1 0.00 Not Available [facility] ([facility]) [address] [place] [address], [address], 06/05/2020 09:56:44 06/05/2006/05/2020 CBC w/ auto diff RBC count 5.18 M/uL 4.60-6 .20 Not Available [facility] ([facility]) [address] [place], [address], 06/05/2020 09:56:44 06/05/2006/05/2020 CBC w/ auto diff hemoglobin 15.1 g/dL 13.5-1 8.0 Not Available [facility] ([facility]) [address] [place], [address], 06/05/2020 09:56:44 06/05/20 06/05/2020 CBC w/ auto diff hematocrit 44.3 % 40.0-5 4.0 Not Available [facility] ([facility]) [address] [place], [address], 06/05/2020 09:56:44 06/05/20 20 06/05/2020 CBC w/ auto diff MCV 85.5 fL 80.0-9 6.0 Not Available [facility] ([facility]) [address] [facility], [place], [address], 06/05/2020 09:56:44 06/05/2006/05/2020 CBC w/ auto diff MCH 29.2 pg 27.0-3 1.0 Not Available [facility] ([facility]) [address] [facility], [place], [address], 06/05/2020 09:56:44 06/05/2006/05/2020 CBC w/ auto diff MCHC 34.1 g/dL 32.0-3 6.0 Not Available [facility] ([facility]) [address] [place] [address], [address], 06/05/2020 09:56:44 06/05/2006/05/2020 CBC w/ auto diff platelet CT 208 K/uL 150-45 0 Not Available [facility] ([facility]) [address] [place] [address], [address], 06/05/2020 09:56:44 06/05/2006/05/2020 CBC w/ auto diff RDWS 36.0 fL 41.0-5 1.0 low Not Available [facility] ([facility]) [address] [place] [address], [address], 06/05/2020 09:56:44 06/05/2006/05/2020 CBC w/ auto diff RDWC 11.6 % 11.0-1 6.0 Not Available [facility] ([facility]) [address] [place] [address], [address], 06/05/2020 09:56:44 06/05/2006/05/2020 CBC w/ auto diff MPV 11.7 fL 8.0-13 .0 Not Available [facility] ([facility]) [address] [place] [address], [address], 06/05/2020 09:56:44 06/05/2006/05/2020 wbc diff, auto, blood diff type AUTOMA ASHLEY Not Available [facility] ([facility]) [address] [place] [address], [address], 06/05/2020 09:56:46 06/05/2006/05/2020 wbc diff, auto, blood neutrophil 54.3 % 50.0-7 0.0 Not Available [facility] ([facility]) [address] [place] [address], [address], 06/05/2020 09:56:46 06/05/2006/05/2020 wbc diff, auto, blood lymphocytes 31.7 % 20.0-5 2.0 Not Available [facility] ([facility]) [address] [place] [address], [address], 06/05/2020 09:56:46 06/05/2006/05/2020 wbc diff, auto, blood monocyte 9.0 % 0.0-12 .5 Not Available [facility] ([facility]) [address] [place] [address], [address], 06/05/2020 09:56:46 06/05/2006/05/2020 wbc diff, auto, blood eosinophil 3.8 % 0.0-4. 0 Not Available [facility] ([facility]) [address] [place] [address], [address], 06/05/2020 09:56:46 06/05/2006/05/2020 wbc diff, auto, blood basophil 0.8 % 0.0-2. 0 Not Available [facility] ([facility]) [address] [place] [address], [place], [address], 06/05/2020 09:56:46 06/05/2006/05/2020 wbc diff, auto, blood immature gran. 0.4 % 0.0-1. 1 Not Available [facility] ([facility]) [address] [facility], [place], [address], 06/05/2020 09:56:46 06/05/2006/05/2020 wbc diff, auto, blood nucleated RBC 0.0 % 0.0 Not Available [facility] ([facility]) [address] [facility], [place], [address], 06/05/2020 09:56:46 06/05/2006/05/2020 wbc diff, auto, blood abs. neutrophil 2.59 K/uL 2.50-7 .00 Not Available [facility] ([facility]) [address] [place] [address], [address], 06/05/2020 09:56:46 06/05/2006/05/2020 wbc diff, auto, blood abs. lymphocyte 1.51 K/uL 1.00-5 .20 Not Available [facility] ([facility]) [address] [place] [address], [address], 06/05/2020 09:56:46 06/05/2006/05/2020 wbc diff, auto, blood abs. monocyte 0.43 K/uL 0.00-0 .90 Not Available [facility] ([facility]) [address] [place] [address], [address], 06/05/2020 09:56:46 06/05/2006/05/2020 wbc diff, auto, blood abs. eosinophil 0.18 K/uL 0.00-0 .45 Not Available [facility] ([facility]) [address] [place] [address], [address], 06/05/2020 09:56:46 06/05/2006/05/2020 wbc diff, auto, blood abs. basophil 0.04 K/uL 0.00-0 .20 Not Available [facility] ([facility]) [address] [place] [address], [address], 06/05/2020 09:56:46 06/05/20 20 06/05/2020 wbc diff, auto, blood abs. immature gran. 0.02 K/uL <0.10 Not Available [facility] ([facility]) [address] [place], [address], 06/05/2020 09:56:46 06/05/2006/05/2020 wbc diff, auto, blood abs. nucleated RBC 0.00 K/uL 0.00 Not Available [facility] ([facility]) [address] [place], [address], 06/05/2020 09:56:46 06/05/2006/05/2020 ESR (eryt hrocy te sedim entat ion rate) , blood sed rate 2 mm/HR 0-15 Not Available Day [facility] ([facility]) [address] [place] [address], [address], 06/05/2020 10:53:50 06/05/2006/05/2020 CMP, serum or plasm a calcium 9.7 mg/dL 8.4-10 .2 Not Available [facility] ([facility]) [address] [place] [address], [address], 06/05/2020 11:12:16 06/05/2006/05/2020 CMP, serum or plasm a total protein 7.5 g/dL 6.4-8. 3 Not Available [facility] ([facility]) [address] [place] [address], [address], 06/05/2020 11:12:16 06/05/2006/05/2020 CMP, serum or plasm a albumin 4.8 g/dL 3.5-5. 0 Not Available [facility] ([facility]) [address] [place] [address], [address], 06/05/2020 11:12:16 06/05/2006/05/2020 CMP, serum or plasm a globulin 2.7 g/dL 2.3-4. 5 Not Available [facility] ([facility]) [address] [place] [address], [address], 06/05/2020 11:12:16 06/05/2006/05/2020 CMP, serum or plasm a A:g ratio 1.78 ratio 0.91-1 .95 Not Available [facility] ([facility]) [address] [place] [address], [address], 06/05/2020 11:12:16 06/05/2006/05/2020 CMP, serum or plasm a SGOT 27 units /L 17-59 Not Available [facility] ([facility]) [address] [place] [address], [address], 06/05/2020 11:12:16 06/05/2006/05/2020 CMP, serum or plasm a SGPT 18 units /L <50 Not Available [facility] ([facility]) [address] [place] [address], [address], 06/05/2020 11:12:16 06/05/2006/05/2020 CMP, serum or plasm a bilirubin, total 0.80 mg/dL 0.2-1. 3 Not Available [facility] ([facility]) [address] [place] [address], [address], 06/05/2020 11:12:16 06/05/2006/05/2020 CMP, serum or plasm a alkaline phospatase 51 units /L 40-129 Not Available [facility] ([facility]) [address] [place] [address], [address], 06/05/2020 11:12:16 06/05/2006/05/2020 CMP, serum or plasm a glucose, fasting 98 mg/dL 70-100 Not Available [facility] ([facility]) [address] [place] [address], [address], 06/05/2020 11:12:16 06/05/2006/05/2020 CMP, serum or plasm a BUN 12 mg/dL 6-20 Not Available [facility] ([facility]) [address] [place], [address], 06/05/2020 11:12:16 06/05/2006/05/2020 CMP, serum or plasm a creatinine 0.8 mg/dL 0.5-1. 2 Not Available [facility] ([facility]) [address] [place] [address], [address], 06/05/2020 11:12:16 06/05/2006/05/2020 CMP, serum or plasm a BUN/crea ratio 15.00 ratio Not Available [facility] ([facility]) [address] [place] [address], [address], 06/05/2020 11:12:16 06/05/2006/05/2020 CMP, serum or plasm a sodium 141 mmol/ L 135-14 5 Not Available [facility] ([facility]) [address] [place] [address], [address], 06/05/2020 11:12:16 06/05/2006/05/2020 CMP, serum or plasm a potassium 4.8 mmol/ L 3.5-5. 1 Not Available [facility] ([facility]) [address] [place] [address], [address], 06/05/2020 11:12:16 06/05/2006/05/2020 CMP, serum or plasm a chloride 104 mmol/ L 98-107 Not Available [facility] ([facility]) [address] [place] [address], [address], 06/05/2020 11:12:16 06/05/2006/05/2020 CMP, serum or plasm a bicarbonate 31 mmol/ L 24-32 Not Available [facility] ([facility]) [address] [facility], [place], [address], 06/05/2020 11:12:16 06/05/2006/05/2020 CMP, serum or plasm a anion gap 11 10-25 Not Available [facility] ([facility]) [address] [place], [address], 06/05/2020 11:12:16 06/05/2006/05/2020 lipid panel , serum cholesterol 131 mg/dL 0-200 Not Available [facility] ([facility]) [address] [place], [address], 06/05/2020 11:12:17 06/05/2006/05/2020 lipid panel , serum triglyceride 31 mg/dL <150 Not Available Day [facility] ([facility]) [address] [place], [address], 06/05/2020 11:12:17 06/05/2006/05/2020 lipid panel , serum HDL 67 mg/dL 40-60 high Not Available [facility] ([facility]) [address] [facility], [place], [address], 06/05/2020 11:12:17 06/05/2006/05/2020 lipid panel , serum LDL,calculat ed 57.8 mg/dL 0-130 Not Available [facility] [address] [place], [address], 06/05/2020 11:12:17 06/05/2006/05/2020 lipid panel , serum VLDL cholesterol, calc 6 mg/dL <30 Not Available [facility] ([facility]) [address] [place], [address], 06/05/2020 11:12:17 06/05/2006/05/2020 lipid panel , serum cholesterol/ HDL ratio 1.96 0-5.10 Not Available [facility] ([facility]) [address] [place] [address], [address], 06/05/2020 11:12:17 06/05/20 20 06/05/2020 uric acid, serum or plasm a uric acid 8.4 mg/dL 0.0-6. 9 high Not Available [facility] ([facility]) [address] [place] [address], [address], 06/05/2020 11:12:18 06/05/2006/05/2020 GFR, estim ated (eGFR ), serum GFR,calculat ed >60 mL/mi n/1.7 3m2 >60 GFR calcu latio n requi res an adjus tment for [place] [employer] cans- multi ply resul t by 1.210 . Patie nts with chron ic kidne y disea se exhib it an estim ated GFR less than 60 mL/mi n/1.7 3m2. Resul ts less than 15 are consi stent with kidne y failu re. Not Available [facility] ([facility]) [address] [place] [address], [address], 06/05/2020 11:18:08 06/05/20 20 06/05/2020 rf (rheu matoi d facto r), serum rheumatoid factor, quant 9.4 iunit s/mL <14 Not Available [facility] ([facility]) [address] [place] [address], [address], 06/05/2020 11:18:09 06/05/2006/05/2020 TSH, serum or plasm a TSH 1.25 uIU/m L 0.35-5 .50 This resul t can be affec ashley by the prese nce of bioti n in blood sampl es of patie nts who are takin g high doses of bioti n.If this resul t does not match the clini merlin prese ntati on of the patie nt, consi chuck bioti n as a poten tial sourc e of error . Not Available [facility] ([facility]) [address] [place] [address], [address], 06/05/2020 12:02:34 06/05/2006/07/2020 WILLARD (anti nucle ar antib odies ) scree n, serum WILLARD direct Negati ve Refer ence range : Negat vijaya (NOTE ) Perfo rmed At: [facility] [place] [address] [place] [address] Matthew Kimball MD Ph:[phone] Not Available [facility] ([facility]) [address] [place] [address], [address], 06/07/2020 13:06:24 06/05/2006/05/2020 tick- borne disea se panel lyme IgG/IgM Ab Refer ence range : 0.00 to 0.90 Unit: ISR (NOTE ) Negat vijaya <0.91 Equiv ocal 0.91 - 1.09 Posit vijaya >1.09 Perfo rmed At: [facility] [place] [facility] [address] [place] [address] Matthew Kimball MD Ph:[phone] Not Available [facility] ([facility]) [address] [place] [address], [address], 06/07/2020 13:06:25 06/05/20 20 06/05/2020 tick- borne disea se panel A. phagocytophi lum PCR Pendin g Not Available [facility] ([facility]) [address] [place] [address], [address], 06/07/2020 13:06:25 06/05/2006/05/2020 tick- borne disea se panel babesia microti, PCR Pendin g Not Available [facility] ([facility]) [address] [place] [address], [address], 06/07/2020 13:06:25 06/05/2006/07/2020 tick- borne disea se panel llyme0 <0.91 Not Available [facility] ([facility]) [address], [place], [address], 06/07/2020 13:06:25 Result Notes None recorded. Problems Name Problem SNOMED Code Status Onset Date Resolution Date Notes Provider Name and Address Organization Details Recorded Time Gout 39480937 Active 06/05/20 JAYNEBRADFORD NASH APRN [address] [place], [place], , [facility] 06/05/2020 17:48:24 Problem Notes None recorded. Procedures Surgical History Date Name Laterality Status Provider Name and Address Organization Details Recorded Time Appendectomy completed JAYNE NASH APRN [address] [place], [place], , [facility] 11/14/2017 16:11:25 Orthopaedic Surgery completed JAYNEBRADFORD NASH APRN [address] [place], [place], , [facility] 11/14/2017 16:11:42 Imaging Results None recorded. Procedure Notes None recorded. Medical Equipment None Reported. Allergies No known drug allergies Medications Name Sig Start Date Stop Date Status Note LastModified by Organization Details LastModified Time cyclobenzap rine 10 mg tablet TK 1 T PO TID PRN FOR LOWER BACK SPASM active Not Available Not Available No t Available tuberculin PPD 5 tub. unit/0.1 mL intradermal injection solution Intraderm al administr tion 2018 active Not Available Not Available Not Avai lable clindamycin HCl 300 mg capsule TK 1 C PO Q 6 H FOR 7 DAYS active Done 11/11 sm Not Available Not Available Not Available ketotifen 0.025 % (0.035 %) eye drops INSTILL 1 DROP INTO AFFECTED EYE(S) BY OPHTHALMI C ROUTE 2 TIMES PER DAY 09/21 completed Not Available Not Available Not Available Nystop 100,000 unit/gram topical powder apply to affected area twice a day 10/24 completed dne Not Available Not Available Not Available prednisone 20 mg tablet 11/14 completed done Not Available Not Available Not Available oxycodone-a cetaminophe n 5 mg-325 mg tablet TK 1 TO 2 TS PO Q 4 H PRN FOR PAIN active Not Available Not Available No t Available terbinafine HCl 250 mg tablet take 1 tablet by mouth daily for 14 days 10/24 completed done Not Available Not Available Not Available erythromyci n 5 mg/gram (0.5 %) eye ointment APPLY 1 CM RIBBON INTO THE LOWER CONJUNCTI JASKARAN SAC(S) IN THE AFFECTED EYE(S) BY OPHTHALMI C ROUTE 4 TIMES PER DAY 09/21 completed Not Available Not Available Not Available prednisone 50 mg tablet Take 1 tablet every day by oral route for 5 days. active Not Available Not Available No t Available indomethaci n 50 mg capsule 11/14 completed done Not Available Not Available Not Available butenafine 1 % topical cream APPLY TO THE AFFECTED AND SURROUNDI NG AREAS OF SKIN BY TOPICAL ROUTE ONCE DAILY 10/24 completed done Not Available Not Available Not Available neomycin 3.5 mg/g-polymy smooth B 10,000 unit/g-dexa meth 0.1 % eye oint APPLY A SMALL AMOUNT INTO THE CONJUNCTI JASKARAN SAC(S) IN AFFECTED EYE(S) BY OPHTHALMI C ROUTE 3 TIMES PER DAY for up to 2 wks active Done 11/11 sm Not Available Not Available Not Available Vitals Date Recorded Body height Heart rate Oxygen saturation Oxygen saturation in Arterial blood by Pulse oximetry Pain severity - 0-10 verbal numeric rating [Score] - Reported Systolic blood pressure Diastolic blood pressure Provider Name and Address Organization Details Last Updated DateTime 0 175.26 cm 60 /min 99 % 99 % 0 123 mm[Hg] 79 mm[Hg] MARTHA PEARSON [facility] 0 14:30:58 Date Recorded Body height Body temperature Respiratory rate Pain severity - 0-10 verbal numeric rating [Score] - Reported Body mass index (BMI) Body weight Provider Name and Address Organization Details Last Updated DateTime 0 175.26 cm 98.7 [degF] 16 /min 0 27.3 kg/m2 69478.5 9 g Noris Reneeina [place] [employer] [place] [facility] 0 13:48:44 Date Recorded Body height Body mass index (BMI) Body weight Provider Name and Address Organization Details Last Updated DateTime 12/14/2019 175.26 cm 27.3 kg/m2 94724.59 g Marla Vancejas [facility] 12/14/2019 10:31:58 Date Recorded Body height Body mass index (BMI) Body weight Pain severity - 0-10 verbal numeric rating [Score] - Reported Heart rate Oxygen saturation Oxygen saturation in Arterial blood by Pulse oximetry Systolic blood pressure Diastolic blood pressure Provider Name and Address Organization Details Last Updated DateTime 0 175.26 cm 28.6 kg/m2 00248.9 2 g 6 77 /min 97 % 97 % 136 mm[Hg] 80 mm[Hg] RIZWAN GUIDO [facility] 0 09:58:10 Date Recorded Body height Body mass index (BMI) Body weight Heart rate Oxygen saturation Oxygen saturation in Arterial blood by Pulse oximetry Pain severity - 0-10 verbal numeric rating [Score] - Reported Systolic blood pressure Diastolic blood pressure Provider Name and Address Organization Details Last Updated DateTime 0 175.26 cm 28.4 kg/m2 33362.7 4 g 74 /min 97 % 97 % 0 121 mm[Hg] 74 mm[Hg] MARTHA PEARSON [facility] 0 14:29:50 Social History Question Answer Notes LastModified by Organizat ion Details LastModified Time Tobacco Smoking Status Never Smoker Mariaelena jeong, [facility] [employer] 11/14/2017 15:49:38 What Is Your Level Of Alcohol Consumption? Moderate 3 To 4 Beers Now And Then Information not available 11/14/2017 What Is Your Level Of Caffeine Consumption? Moderate 1 Large A Day Information not available 11/14/2017 Are You Currently Employed? Yes Information not available 11/14/2017 What Type Of Diet Are You Following? REGULAR Information not available 11/14/2017 Which Illicit Or Recreational Drugs Have You Used? No kbolanis Information not available 11/14/2017 What Is Your Occupation? [employer] Information not available 11/14/2017 Substance Abuse? No None Informat ion not available 11/14/2017 Are You Effectively Managing Your Stress Level? Yes Information not available 11/14/2017 Marital Status Single Informatio n not available 11/14/2017 What Was The Date Of Your Most Recent Tobacco Screening? 11/14/2017 Information not available 02/15/2019 How Many Children Do You Have? 2 5 And 3 Yo Information not available 11/14/2017 Are You Sexually Active? Yes Information not available 11/14/2017 Sex: Unknown Functional Status Question Answer Note LastModified by Organizat ion Details LastModified Time What is your exercise level? Heavy 3 to 5 days a wk. Weights and treadmill Information not available 11/14/2017 Mental Status None recorded. Family History Relationship Description Onset Age of this Age Resolved Age Notes LastModified by Organization Details LastModified Time Father No current problems or disability [email or web address] Not available 11/14 15:49:01 Mother No current problems or disability [email or web address] Not available 11/14 15:49:21 Brother No current problems or disability [email or web address] Not available 11/14 15:49:23 Sister No current problems or disability [email or web address] Not available 11/14 15:49:26 Medical History No medical history recorded. Immunizations Vaccine Type Date Status Note Provider Nam e and Address Organization Details Recorded Time Influenza, recombinant, quadrivalent, PF 05/15/2019 completed Not Available [facility] 0 02:26:36 Tdap 05/15/2019 completed Not Available [facility] 08/11/2019 02:26:39 Past Encounters Encounter ID Performer Location Encounter Start Date Encounter Closed Date Diagnosis/Indication Diagnosis SNOMED-CT Code Diagnosis ICD10 Code Diagnosis Note [id number] JAYNE NASH APRN [address] [place] [address] 11/14/2017 15:33:35 11/14/2017 16:42:51 Adult health examination 324563180 Z00.00 Internal d erangement of right knee 8438807005 62613 M23.91 Get MRI for R knee MCL vs Medial meniscal injury x 7 mo. Tinea cruris 093614888 B 35.6 Chronic issue. Can start him on oral Tx such as Ketoconazo le after we check LFts. Ganglion of wrist 713659 009 M67.740 [id number] JAYNE NASH APRN [address] [place] [address] 12/14/2017 14:09:30 12/14/2017 14:48:41 Tinea cruris 302263614 B35.6 Did not improve with nystatin. Will give oral Tx and another topical. If no improvemen t in 3 wks then rerfer to derm. Internal d erangement of right knee 4482790398 37106 M23.91 MRI approved but not yet scheduled. [id number] JAYNE NASH APRN [address] [place] [address] 10/24/2018 15:40:07 10/24/2018 16:05:14 Chalazion of lower eyelid 485398829 H00.19 Reassuranc e given. This is not a severe infection. Does not need to be drained. Possible allergy is aggravatin g and would feel better with antihistam ine gtts. [id number] Angie Astorga [address] [place] [address] 05/15/2019 15:14:00 05/15/2019 16:46:35 Tuberculosis screening [id number] Z11.1 Administra tion of influenza vaccine [id number] Z23 Low food p reservative diet 348676054 Z78.9 Laceration of hand [id number] [id number] S61.411A [id number] Kylee Tripathi [address] [place] [address] 05/17/2019 15:30:37 05/17/2019 17:01:58 Tuberculosis screening [id number] Z11.1 [id number] JAYNE NASH APRN [address] [place] [address] 07/31/2019 14:13:49 07/31/2019 15:04:58 Conjunctivitis [id number] H10.9 Possible initial scratched cornea but now with swollen lids suggesting bacterial infection. At 5 days out a scratch should have healed. [id number] JAYNE NASH APRN [address] [place] [address] 09/21/2019 13:59:30 09/21/2019 15:02:50 Chalazion of upper eyelid [id number] H00.19 He has had this several times in past year. Not sure what is causing it. He denies rubbing eyes. Consider prophylaxi s with baby shampoo. [id number] Patel Murray MD [address] [place] [address] 11/13/2019 13:23:58 11/13/2019 15:24:50 Viral gastroenteritis [id number] A08.4 Headache 99118554 R51 Mild dehydration 2874936 119 108 E86.0 [id number] Yousif Westfall MD [address] [place] [address] 12/14/2019 09:00:22 12/14/2019 13:51:57 Low back pain [id number] M54.5 [id number] JAYNE NASH APRN [address] [place] [address] 05/09/2020 09:46:46 05/09/2020 10:15:42 Multiple joint pain 45585303 M25.50 No edema. The joints seem to have become painful at varying times. Check labs. If no direction then send to PT. Adult heal th examination [id number] Z00.00 Health Concerns Section Related Observation LastModified by Organization Detai ls LastModified Time None Recorded Concern Status LastModified by Organization Details LastModified Time None Recorded Advance Directives Directive None Recorded Payers Encounter Date Sequence Insurance Name Policy Number Policy Roblero Covered Member ID Roblero Member ID Guarantor Name 07/31/2019 1 [place] - DOS PRIOR TO 2024 - [employer] () Lico Lam [id number] Lico Lam 09/21/2019 1 [place] - DOS PRIOR TO 2024 - [employer] () Lico Lam [id number] Lico Lam 11/13/2019 1 [place] - DOS PRIOR TO 2024 - [employer] () Lico Lam [id number] Lico Lam 12/14/2019 1 [place] - DOS PRIOR TO 2024 - [employer] () Lico Lam [id number] Lico Lam 05/09/2020 1 [place] - DOS PRIOR TO 2024 - [employer] () Lico Lam [id number] Lico Lam Notes Date Note Type Note Provider Name and Address Organization Details Recorded Time 07/31/2019 text/html R eye infection about 1 mo. ago. About 5 days ago started getting irritated. He might have gotten pressure treated saw dust in his eye when sawing. No discharge to eye. Seems to be worsening. No real pain. JAYNE NASH APRN [address] [place], [address], [facility] [employer] 07/31/2019 14:46:53 09/21/2019 text/html Pt. had chalazio n of R eye [facility]. In May The R eye was was swollen shut with minimal discharge. August 03 he had conjunctivitis with blepharitis which fully resolved all on R eye. Now over the month of Aug R eye again swollen with a bump. Has slight discharge causing cloudy vision but it does not collect. Denies rubbing eyes. Denies allergies. JAYNE NASH APRN [address] [place], [place], , [facility] [employer] 09/24/2019 13:13:27 11/13/2019 text/html Headaches past f ew days. Diarrea every hours, Watery stool has resolved. Sharp pain in the lower abdomen - both sideNausea this AM but no vomitingSon has cough for 1.5 weeksNo GI sxs in other patientsOn active duty Air Force but no recent travelNo fever or cough or anosmia Patel Murray MD [address] [place], [address], [employer] 11/19/2019 17:26:55 12/14/2019 text/html Yesterday avel hawkins twisted and sudden onset severe right LBP assoc c pop. Stood still for a min then severe pain and went to ground. Was down for 30-45 min.Finally able to get up with the help of a friend and dragged himself to his truck and got home. Took 800 mg ibuprofen and tried to put some heat on his back, just rested, and seemed to loosen up a little bit over the course of the day yesterday. Went to bed, and when he got up this morning, everything was stiffened up, and took him 30 minutes to finally roll around and get out of bed. Still has severe right low back pain, radiates a little bit into the upper part of the buttock, but not down into the groin, not down into the right leg. He has no leg numbness, tingling, or weakness. No bowel or bladder dysfunction. No past history of similar problem. He is quite fit. Works out regularly. Does a lot of heavy work out in his yard and around the house. His job is actually fairly light, mostly working at a desk. Yousif Westfall MD [address] [place], [place], , [employer] 12/17/2019 15:43:19 05/09/2020 text/html Pain in hips x a nd wrists 1.5 mo. Neck has been stiff for some years. In AM his neck is very stiff. No edema in joints. No fevers. No rashes. Hx of gout with 2 rounds of toes flairing up. He stopped weightlifting for 1 mo. w/o any benefit. Pain on wrists with pushup up to 6/10. JAYNE NASH APRN [address] [place], [address], [place] [employer] 05/09/2020 10:18:35
== END 2024-10-12 16:25 | disposition home or self-care (01) ==
LOC: HO.HNS 15:11
PROVIDERS: PCP Internal Medicine; Visit Provider Physician Assistant
DX: Z98.890 Other specified postprocedural states (principal)
CPT/HCPCS: 99213

== ENCOUNTER → 2024-10-12 15:10 | Outpatient (BNVA) | payer OTHER, SELFPAY | PROVIDERS: PCP Internal Medicine; Visit Provider Physician Assistant | DX: M54.59 Other low back pain (principal); Z98.890 Other specified postprocedural states | CPT/HCPCS: 99212 ==